=== PATIENT | male | born 1945 | race Caucasian/White ===

== ENCOUNTER 2018-05-09 18:48 | Emergency (ER) | payer OTHER, SELFPAY ==
[2018-05-09] VITALS (17 sets, daily range): BP systolic 95–145; BP diastolic 70–123; PULSE 80–165; RESP 12–22; TEMP 36.7; O2SAT 96–100; BMI 25.8
[2018-05-09] MEDS: SODIUM CHLORIDE 0.9% 1,000 ML 150 ML IV (19:00)
--- NOTE | 2018-05-09 19:41 | ED_ITS ---
HPI - Arrhythmia/Palpitations General Chief Complaint: Arrhythmia/Palpitations Stated Complaint: SHAKEY,DISORIENTED,THINKS STROKE Time Seen by Provider: 05/09/18 19:08 Source: patient and family Mode of arrival: ambulatory Limitations: no limitations History of Present Illness HPI narrative: 72-year-old male with history of hypertension and recent stroke presents with dizziness, confusion, and shakiness. He states this started at 3pm today. He denies CP but admits to SOB. He does not take anticoagulation. He is sure he wasn't having these symptoms yesterday. complaint: rapid heart beat and heart racing Onset (ago): hour(s) Time: 15:00 Duration: constant Severity: moderate Associated symptoms: shortness of breath and anxiety Treatments prior to arrival: vagal maneuvers Related Data Home Medications Medication Instructions Recorded Confirmed aspirin 325 mg PO QPM 05/09/18 05/09/18 coenzyme Q10 [CoQ-10] 100 mg PO DAILY 05/09/18 05/09/18 tacrolimus [Protopic] 1 applic TP BID 05/09/18 05/09/18 Previous Rx's Medication Instructions Recorded ibuprofen 600 mg PO Q6HP PRN #20 tab 12/03/16 fluticasone-salmeterol [Advair 2 puff INH QDAY #60 inh 09/11/17 Diskus] lisinopril 20 mg PO BID #60 tab 10/31/17 atorvastatin [Lipitor] 40 mg PO HS #30 tab 04/30/18 apixaban [Eliquis] 5 mg PO BID #60 tab 05/09/18 diltiazem HCl [Cardizem CD] 120 mg PO DAILY #30 cap 05/09/18 Allergies Allergy/AdvReac Type Severity Reaction Status Date / Time Penicillins [PENICILLINS] Allergy Severe EYE Verified 05/09/18 19:43 SWELLING/ CHILDHOOD Review of Systems Review of Systems All systems reviewed & are unremarkable except as noted in HPI and below Constitutional Denies chills, Denies fever(s), Denies lethargy and Denies weakness Eyes Denies change in vision, Denies eye discharge, Denies irritation and Denies loss of vision ENT Ears, Nose, Mouth, and Throat: Denies change in voice, Denies neck pain and Denies sore throat Cardiovascular Denies chest pain, Denies irregular heart rhythm, Reports lightheadedness, Reports palpitations, Reports dyspnea, Denies dyspnea on exertion and Denies orthopnea Respiratory Denies cough, Reports dyspnea, Denies dyspnea on exertion and Denies wheezing Gastrointestinal Gastrointestinal: Denies abdominal pain, Denies change in bowel habits, Denies diarrhea, Denies nausea and Denies vomiting Genitourinary Denies hematuria, Denies flank pain, Denies urinary incontinence and Denies urinary urgency Musculoskeletal Denies neck pain Integumentary/Breasts Denies pruritus, Denies erythema, Denies rash and Denies wounds Neurologic Reports confusion, Denies loss of vision and Denies weakness Psychiatric Denies anxiety, Reports confusion, Denies depression, Denies homicidal ideation and Denies suicidal ideation Endocrine Reports palpitations Hematologic/Lymphatic Denies easy bruising Allergic/Immunologic Denies wheezing PFSH Social History Smoking Status: Former smoker Exam Narrative Exam Narrative: Pleasant 72M in distress, a bit confused, SOB Initial Vital Signs Initial Vital Signs: Vital Signs Temperature 98.1 F 05/09/18 18:50 Pulse Rate 162 H 05/09/18 18:50 Respiratory Rate 22 05/09/18 18:50 Blood Pressure 105/80 05/09/18 18:50 Pulse Oximetry 98 05/09/18 18:50 Const General: cooperative, well developed and in distress Nutritional Appearance: well nourished Orientation: alert, awake, oriented x3 and confused [facility] Head: normocephalic and atraumatic Nose: external nose normal and No nasal discharge Face and sinus: sinuses nontender, face symmetric, no sinus tenderness and No dry mucous membranes Mouth: oral mucosae normal and moist mucous membranes Teeth and gingiva: dentition normal Throat: tonsils normal and uvula midline Eyes General: appearance normal, both eyes and all related structures Alignment and Position: alignment normal Pupils: PERRL EOM: EOM intact bilaterally Chest Chest: normal inspection of the chest Resp Effort & Inspection: normal respiratory effort, able to speak in complete sentences, no respiratory distress and no use of accessory muscles Auscultation: clear to auscultation bilaterally, no rales, no rhonchi and no wheezes Cardio Rate: tachycardic Rhythm: abnormal rhythm Heart Sounds: no click, no gallops, no murmurs and no rubs Pulses: normal peripheral pulses GI Inspection: non-distended Palpation: soft, no hepatosplenomegaly, No guarding, No pulsatile mass and No tender Auscultation: normal bowel sounds Back/Spine/Pelvis Back: No CVA tenderness Cervical Spine: cervical ROM normal and No pain with cervical ROM Thoracic/Lumbar Spine: thoracic and lumbar spine normal to inspection Skin General: no rashes or lesions noted, No jaundice and No petechiae Neuro General: alert, oriented x3, gait normal and no focal motor deficits Speech: speech normal Extrem General: full ROM, no clubbing, cyanosis or edema, no pedal edema and no calf tenderness Procedures Procedural Sedation Indication: cardioversion ASA Class: II Mallampati Airway Classification: Class II Preparation: environmental monitoring technician applied, pulse oximeter, capnometry used, supplemental O2 applied, suction/airway equipment at bedside and IV secured IV Propofol dose (mg): 40 ED Sedation Level: Moderate (Concious) Patient Tolerated Procedure: Well Complications: none Additional Comments: Electrical Cardioversion: Indication: [] A time-out was completed verifying correct patient, procedure and site. Informed consent was obtained. The patient was judged to be a satisfactory for the procedure. An intravenous access was established. Monitoring equipment was set-up. The resuscitative cart was nearby. Anesthesia: The patient was given an intravenous dose of [Propofol 40mg IVP] After satisfactory anesthesia was achieved, the procedure was performed. The paddles were placed in the standard position. Synchronized, direct current electrical cardioversion was performed with [150 joules]. The patient tolerated the procedure well. There were no complications. Post Procedure: Successful cardioversion [was achieved.] Post procedure cardiac monitoring demonstrated [NSR]. Course Orders Ordered: ED Orders 05/09/18 19:00 Complete Blood Count AUTO DIFF Stat Comprehensive Metabolic Panel Stat Magnesium Stat T4 Thyroxine Stat Thyroid Stimulating Hormone Stat Troponin with CK Cardiac Panel Stat 05/09/18 19:57 XR chest 1V Stat EKG-12 Lead Stat Diltiazem HCl 125 mg/ Dextrose 125 mls @ 5 mls/hr IV TITRATE VIJAY; Protocol Last Titration: 05/09/18 20:50 Dose: 5 mg/hr, 5 mls/hr Admin: 05/09/18 19:47 Dose: 5 mg/hr, 5 mls/hr Sodium Chloride (Normal Saline 0.9%) 1,000 mls @ 150 mls/hr IV CONT VIJAY Last Infusion: 05/09/18 20:07 Dose: 0 mls/hr Admin: 05/09/18 19:00 Dose: 150 mls/hr Discontinued Medications Diltiazem HCl (Cardizem) 10 mg IV NOW ONE Stop: 05/09/18 19:26 Last Admin: 05/09/18 19:48 Dose: 10 mg Enoxaparin Sodium (Lovenox) 40 mg SUBCUT NOW ONE Stop: 05/09/18 19:46 Last Admin: 05/09/18 19:48 Dose: 40 mg Propofol (Diprivan) 40 mg 0.5 mg/kg (40 mg) IV NOW ONE Stop: 05/09/18 19:46 Last Admin: 05/09/18 19:47 Dose: 40 mg Reevaluation(s) Reevaluation #1: After a few minutes the patient quickly converted back to a rapid AFib at which point Cardizem 10 mg IVP and a Cardizem drip was administered. After 10 min the patient converted into a normal sinus rhythm. Patient remains completely asymptomatic. All symptoms ceased with rate control Consultations Consultation #1: call to neon sign erector for PCP (Jaime) whom is happy with Eliquis and recommends Cardizem 120 for ongoing rate control Time: 22:09 Vital Signs - 8 hr 05/09/18 18:50 05/09/18 19:05 05/09/18 19:18 Temperature 98.1 F Pulse Rate 162 H 136 H 165 H Respiratory Rate 22 12 16 Blood Pressure 105/80 Blood Pressure [Left Arm] 123/76 H Pulse Oximetry 98 99 05/09/18 19:20 05/09/18 19:25 05/09/18 19:30 Temperature Pulse Rate 122 H 132 H 134 H Respiratory Rate 19 19 17 Blood Pressure Blood Pressure [Left Arm] 95/72 127/99 H 142/123 H Pulse Oximetry 96 96 98 05/09/18 19:35 05/09/18 19:40 05/09/18 19:45 Temperature Pulse Rate 136 H 138 H 141 H Respiratory Rate 20 19 18 Blood Pressure Blood Pressure [Left Arm] 122/81 H 135/99 H 120/70 Pulse Oximetry 99 99 98 05/09/18 19:47 05/09/18 20:05 05/09/18 20:30 Temperature Pulse Rate 114 H 119 H 81 Respiratory Rate 18 12 Blood Pressure 121/78 H Blood Pressure [Left Arm] 131/85 H 138/77 H Pulse Oximetry 98 99 05/09/18 21:35 Temperature Pulse Rate 97 H Respiratory Rate 14 Blood Pressure Blood Pressure [Left Arm] 143/78 H Pulse Oximetry 100 MDM - Arrhythmia/Palpitations Differential Diagnosis Differential diagnosis: Likely palpitations, anxiety, sinus tachycardia, artial fibrillation, artial flutter, ventricular premature beats and supraventricular tachycardia Medical Records Attestation: I reviewed the patient's medical records. Lab Data Attestation: I reviewed the patient's lab results. Result diagrams: 05/09/18 19:00 05/09/18 19:00 Lab Results 05/09/18 05/09/18 05/09/18 Range/Units 19:00 19:00 19:00 WBC 8.5 (4.5-11.0) X10^3/uL RBC 3.92 L (4.5-5.9) X10^6/uL Hgb 14.0 (13.5-17.5) g/dL Hct 41.2 (41-53) % MCV 105.1 H (80-100) fL MCH 35.8 H (26-34) PG MCHC 34.0 (30-36) % RDW 12.2 (11.6-14.8) % Plt Count 248 (150-400) X10^3/uL Neut % (Auto) 70.8 (50-75) % Lymph % (Auto) 17.8 L (25-40) % Karnes % (Auto) 8.3 (3-14) % Eos % (Auto) 2.4 (2-4) % Baso % (Auto) 0.7 (0-2) % Neut # (Auto) 6000 H (0129-3433) /uL Sodium 140 (137-145) mmol/L Potassium 3.9 (3.4-5.1) mmol/L Chloride 103 (98-107) mmol/L Carbon Dioxide 23 (22-32) mmol/L BUN 20 (9-20) mg/dL Creatinine 0.70 (0.66-1.25) mg/dL Estimated GFR > 60.0 (>60) mL/min BUN/Creatinine Ratio 28.6 H (6-22) Glucose 117 H (80-110) mg/dL Calcium 9.4 (8.4-10.2) mg/dL Magnesium 2.1 (1.6-2.3) mg/dL Total Bilirubin 0.8 (0.2-1.3) mg/dL AST 31 (17-59) IU/L ALT 37 (21-72) IU/L Alkaline Phosphatase 66 (38-126) U/L Total Creatine Kinase 123 (55-170) U/L CK-MB (CK-2) 1.99 (<2.37) ng/mL CK-MB (CK-2) Rel Index 1.6 (1.5-5.0) % Troponin I < 0.012 (0.01-0.034) ng/mL Total Protein 7.2 (6.3-8.2) g/dL Albumin 4.1 (3.5-5.0) g/dL Globulin 3.1 (1.7-4.1) g/dL Albumin/Globulin Ratio 1.3 (1.0-2.8) TSH (0.47-4.68) uIU/mL Thyroxine (T4) (5.5-11.0) ug/dL 05/09/18 Range/Units 19:00 WBC (4.5-11.0) X10^3/uL RBC (4.5-5.9) X10^6/uL Hgb (13.5-17.5) g/dL Hct (41-53) % MCV (80-100) fL MCH (26-34) PG MCHC (30-36) % RDW (11.6-14.8) % Plt Count (150-400) X10^3/uL Neut % (Auto) (50-75) % Lymph % (Auto) (25-40) % Karnes % (Auto) (3-14) % Eos % (Auto) (2-4) % Baso % (Auto) (0-2) % Neut # (Auto) (1020-7478) /uL Sodium (137-145) mmol/L Potassium (3.4-5.1) mmol/L Chloride (98-107) mmol/L Carbon Dioxide (22-32) mmol/L BUN (9-20) mg/dL Creatinine (0.66-1.25) mg/dL Estimated GFR (>60) mL/min BUN/Creatinine Ratio (6-22) Glucose (80-110) mg/dL Calcium (8.4-10.2) mg/dL Magnesium (1.6-2.3) mg/dL Total Bilirubin (0.2-1.3) mg/dL AST (17-59) IU/L ALT (21-72) IU/L Alkaline Phosphatase (38-126) U/L Total Creatine Kinase (55-170) U/L CK-MB (CK-2) (<2.37) ng/mL CK-MB (CK-2) Rel Index (1.5-5.0) % Troponin I (0.01-0.034) ng/mL Total Protein (6.3-8.2) g/dL Albumin (3.5-5.0) g/dL Globulin (1.7-4.1) g/dL Albumin/Globulin Ratio (1.0-2.8) TSH 1.88 (0.47-4.68) uIU/mL Thyroxine (T4) 9.76 (5.5-11.0) ug/dL Imaging Data Chest x-ray: Attestation: I personally reviewed and interpreted this imaging study as follows: My impression: PROCEDURE: XR CHEST 1V INDICATIONS: new onset AFib TECHNIQUE: One view of the chest was acquired. COMPARISON: [facility], , CHEST 1 VIEW, 05/18/2017, 20:36. FINDINGS: Surgical changes and devices: None. Lungs and pleura: No pleural effusions or pneumothorax. Lungs are clear. Scattered interstitial opacities/scarring. Mediastinum: Mediastinal contours appear normal. Heart size is normal. Bones and chest wall: No suspicious bony lesions. Overlying soft tissues appear unremarkable. IMPRESSION: No acute disease. Scattered scarring/atelectasis. Dictated by: Mahin Le M.D. on 05/09/2018 at 20:15 Approved by: Mahin Le M.D. on 05/09/2018 at 20:16 ECG Data Attestation: I personally reviewed and interpreted this ECG as follows: Interpretation: AFib in 160s, RVR. No ST depression/elevation MDM Narrative Medical decision making narrative: Patient has newly discovered atrial fibrillation, after 2 attempts electrocardioversion patient had been placed on a drip but has remained in a normal sinus rhythm for over 1 hr, after stopping the drip. He is completely asymptomatic. Chads Vasc score is 4 and patient will need ongoing anticoagulation. Patient responded well to Cardizem through the IV hence prescription for oral Discharge Plan Departure Patient Disposition: Home, Self-Care Clinical Impression: Atrial fibrillation with rapid ventricular response Instructions: DI for Atrial Fibrillation Activity Restrictions/Additional Instructions: *You have been diagnosed with [ rapid atrial fibrillation ] *What to do: *Take medications as directed *Follow up with your primary care provider in 2-3 days *Return to ER if you should have [such as] [or] any new, worsening or concerning symptoms Prescriptions: New diltiazem HCl [Cardizem CD] 120 mg capsule,extended release 24hr 120 mg PO DAILY Qty: 30 RF: 0 apixaban [Eliquis] 5 mg tablet 5 mg PO BID Qty: 60 RF: 0 No Action ibuprofen 600 MG tablet 600 mg PO Q6HP PRNQty: 20 RF: 0 fluticasone-salmeterol [Advair Diskus] 250 MCG/50 MCG blister with device 2 puff INH QDAY Qty: 60 RF: 12 lisinopril 20 MG tablet 20 mg PO BID Qty: 60 RF: 12 atorvastatin [Lipitor] 40 mg tablet 40 mg PO HS Qty: 30 RF: 0 coenzyme Q10 [CoQ-10] 100 mg Capsule 100 mg PO DAILY RF: 0 aspirin 325 MG tablet,delayed release (DR/EC) 325 mg PO QPM RF: 0 tacrolimus [Protopic] 0.1 % ointment 1 applic TP BID RF: 0 Referrals: Garry Claros MD [Primary Care Provider] -
[2018-05-09] MEDS: dilTIAZem 125 MG in DEXTROSE 5 % IN WATER 100 ML IV (19:47)
[2018-05-09] MEDS: PROPOFOL 200 MG/20 ML VIAL 40 MG IV (19:47)
[2018-05-09] MEDS: ENOXAPARIN 40 MG/0.4 ML SYRINGE SUBCUT (19:48)
[2018-05-09] MEDS: dilTIAZem 25 MG/5 ML SDV 10 MG IV (19:48)
--- NOTE | 2018-05-09 19:57 | DI.RAD.S_ITS ---
PROCEDURE: XR CHEST 1V INDICATIONS: new onset AFib TECHNIQUE: One view of the chest was acquired. COMPARISON: [facility], , CHEST 1 VIEW, 05/18/2017, 20:36. FINDINGS: Surgical changes and devices: None. Lungs and pleura: No pleural effusions or pneumothorax. Lungs are clear. Scattered interstitial opacities/scarring. Mediastinum: Mediastinal contours appear normal. Heart size is normal. Bones and chest wall: No suspicious bony lesions. Overlying soft tissues appear unremarkable. IMPRESSION: No acute disease. Scattered scarring/atelectasis. Dictated by: Mahin Le M.D. on 05/09/2018 at 20:15 Approved by: Mahin Le M.D. on 05/09/2018 at 20:16
[2018-05-09 20:20] LABS: Add Manual Diff / Slide Review NO; Basophils Percent Auto 0.7 % (0-2); Eosinophils Percent Auto 2.4 % (2-4); Hematocrit 41.2 % (41-53); Lymphocytes Percent Auto 17.8 % (25-40); Mean Corpuscular Hemoglobin 35.8 PG (26-34); Mean Corpuscular Volume 105.1 fL (80-100); Monocytes Percent Auto 8.3 % (3-14); Neutrophils Absolute Auto 6000 /uL (3000-5900); Neutrophils Percent Auto 70.8 % (50-75); Platelet Count 248 X10^3/uL (150-400); Red Blood Cell Count 3.92 X10^6/uL (4.5-5.9); Red Cell Distribution Width 12.2 % (11.6-14.8); White Blood Cell Count 8.5 X10^3/uL (4.5-11.0)
[2018-05-09 20:21] LABS: Alanine Aminotransferase 37 IU/L (21-72); Albumin 4.1 g/dL (3.5-5.0); Albumin Globulin Ratio 1.3 (1.0-2.8); Alkaline Phosphatase 66 U/L (38-126); Aspartate Aminotransferase 31 IU/L (17-59); BUN Creatinine Ratio 28.6 (6-22); Bilirubin Total 0.8 mg/dL (0.2-1.3); Blood Urea Nitrogen 20 mg/dL (9-20); Calcium 9.4 mg/dL (8.4-10.2); Carbon Dioxide 23 mmol/L (22-32); Chloride 103 mmol/L (98-107); Creatine Kinase 123 U/L (55-170); Estimated Glomerular Filt Rate > 60.0 mL/min (>60); Globulin 3.1 g/dL (1.7-4.1); Glucose 117 mg/dL (80-110); HEMOLYSIS < 15 (0-50); Magnesium 2.1 mg/dL (1.6-2.3); Potassium 3.9 mmol/L (3.4-5.1); Sodium 140 mmol/L (137-145); Total Protein 7.2 g/dL (6.3-8.2)
[2018-05-09 20:35] LABS: Troponin I < 0.012 ng/mL (0.01-0.034)
[2018-05-09 20:36] LABS: CKMB % Relative Index 1.6 % (1.5-5.0); Creatine Kinase MB 1.99 ng/mL (<2.37)
[2018-05-09 20:44] LABS: T4 Total Thyroxine 9.76 ug/dL (5.5-11.0)
[2018-05-09 20:58] LABS: Thyroid Stimulating Hormone 1.88 uIU/mL (0.47-4.68)
== END 2018-05-09 22:35 | disposition home or self-care (01) ==
PROVIDERS: Emergency Provider Emergency Medicine; PCP Family Medicine
DX: I48.91 Unspecified atrial fibrillation (principal)
CPT/HCPCS: 36591; 71045; 80053; 82550; 82553; 82962; 83735; 84436; 84443; 84484; 85025; 92960; 93005; 94770; 96372; 96374; 96375; 99152; 99285; 99291; J1650; J2704

== ENCOUNTER → 2018-05-17 12:45 | Outpatient (CLI) | payer OTHER, SELFPAY ==
--- NOTE | 2018-05-17 12:46 | DI.ECHO.S_ITS ---
[facility]---------+ [facility] +---------+ : : [address] : : : : [id number] : : : : Phone: [phone] Echocardiogram Report + + :Name: VILMA NAVA Study Date: 05/17/2018 Height: 70 in : :[facility] Weight: 180 lb : : Gender: Male BSA: 2.0 m2 : :: 1945 Age: 72 yrs BP: 146/60 mmHg: :Reason For Study: Atrial fibrillation : : Performed By: Zena Casey : :Referring: TATIANA ALVARADO : + + Interpretation Summary Normal sinus rhythm.. Heart rate is 75-80 bpm. Normal LV size, wall thickness, wall motion and left ventricular systolic function. Ejection fraction is 60??65 percent. Stage I diastolic dysfunction with E/A reversal. Mild left atrial enlargement. Otherwise normal chamber sizes. No significant valvular abnormalities. Incidentally noted 5 cm hepatic cyst. Compared to prior study May 19, 2017, hepatic cyst is newly described. Otherwise no significant changes have occurred. Procedure: A two-dimensional transthoracic echocardiogram with color flow and Doppler was performed. The study quality was technically adequate. Comparison is made with the echocardiogram of 05-19-17. The patient was in normal sinus rhythm during the exam. Left Ventricle: The left ventricle is normal in size, wall thickness, and systolic function without any focal wall motion abnormalities. The ejection fraction is estimated to be 60-65%. Assessment of diastolic parameters indicates normal left ventricular diastolic function and normal filling pressures. Right Ventricle: Borderline right ventricular enlargement. The right ventricular systolic function is normal. Atria: Borderline left atrial enlargement. Right atrial size is normal. The interatrial septum is intact with no evidence for an atrial septal defect. Mitral Valve: The mitral valve is normal in structure and function. Aortic Valve: The aortic valve is trileaflet. The aortic valve opens well. No aortic regurgitation is present. Tricuspid Valve: The tricuspid valve is normal in structure and function. There is a trace or physiologic amount of tricuspid regurgitation. The right ventricular systolic pressure is estimated at 27 mmHg assuming a right atrial pressure of 3 mm Hg. Pulmonic Valve: The pulmonic valve is not well seen, but is grossly normal. There is no pulmonic valvular regurgitation. Great Vessels: The aortic root is normal size. The dimensions of the ascending aorta are normal. The IVC is of normal diameter and collapses greater than 50% with a sniff. This suggests a low right atrial pressure of 3 mm Hg. Pericardium/ Pleura There is no pericardial effusion. There is no pleural effusion. MMode/2D Measurements & Calculations LVIDd: 4.5 cm Ao root diam: 3.4 cm LVIDs: 3.1 cm Aortic Jxn: 2.6 cm FS: 30.7 % asc Aorta Diam: 3.0 cm EPSS: 0.67 cm Ao Arch Diam (Prox Trans): 3.1 cm IVSd: 0.98 cm LVPWd: 0.78 cm LV interiano. diameter/BSA (cm/m^2): 2.2 LV sys. diameter/BSA (cm/m^2): 1.6 LA dimension: 3.5 cm RA long axis: 5.0 cm LA A2 area: 23.8 cm2 RA area: 18.1 cm2 LA A4 area: 22.8 cm2 RA vol: 55.8 ml LA length (vol): 6.0 cm RA : 28.0 ml/m2 LA vol: 77.1 ml IVC diam: 2.1 cm LA vol index: 38.6 ml/m2 RVDd major: 5.9 cm RVD1 (basal): 4.7 cm RVD2 (mid): 3.6 cm Doppler Measurements & Calculations Ao V2 max: 163.3 cm/sec MV E max gaudencio: 82.1 cm/sec Ao V2 mean: 98.3 cm/sec MV A max gaudencio: 84.7 cm/sec Ao max P.7 mmHg MV E/A: 0.97 Ao mean P.6 mmHg Med Peak E' Gaudencio: 9.5 cm/sec Ao V2 VTI: 33.3 cm E/E' med: 8.7 Lat Peak E' Gaudencio: 11.9 cm/sec E/E' lat: 6.9 E/e' average: 7.8 MV dec time: 0.26 sec MV P1/2t: 77.4 msec TR max gaudencio: 245.2 cm/sec MV P1/2t max gaudencio: 82.4 cm/sec TR max P.1 mmHg MVA(P1/2t): 2.8 cm2 PA V2 max: 89.1 cm/sec PA V2 mean: 57.7 cm/sec PA mean P.6 mmHg PA Accel Time: 0.18 sec Reading Physician:07:56 AM
== END ==
PROVIDERS: PCP Family Medicine; Visit Provider Family Medicine
DX: I48.91 Unspecified atrial fibrillation (principal)
CPT/HCPCS: 93306

== ENCOUNTER → 2018-05-17 13:46 | Outpatient (CLI) | payer OTHER, SELFPAY | PROVIDERS: PCP Family Medicine; Visit Provider Family Medicine | DX: I48.91 Unspecified atrial fibrillation (principal) | CPT/HCPCS: 0296T; 0298T ==

== ENCOUNTER → 2018-06-27 08:44 | Outpatient (CLI) | payer OTHER, SELFPAY ==
[2018-06-27 09:42] LABS: Add Manual Diff / Slide Review NO; Basophils Percent Auto 0.6 % (0-2); Eosinophils Percent Auto 3.7 % (2-4); Hematocrit 40.4 % (41-53); Hemoglobin 13.7 g/dL (13.5-17.5); Lymphocytes Percent Auto 26.8 % (25-40); Mean Corpuscular Hemoglobin 36.1 PG (26-34); Mean Corpuscular Volume 106.3 fL (80-100); Monocytes Percent Auto 9.1 % (3-14); Neutrophils Absolute Auto 3200 /uL (3000-5900); Neutrophils Percent Auto 59.8 % (50-75); Platelet Count 228 X10^3/uL (150-400); Red Cell Distribution Width 12.1 % (11.6-14.8); White Blood Cell Count 5.3 X10^3/uL (4.5-11.0)
[2018-06-27 10:03] LABS: Alanine Aminotransferase 28 IU/L (21-72); Albumin 3.9 g/dL (3.5-5.0); Albumin Globulin Ratio 1.5 (1.0-2.8); Alkaline Phosphatase 55 U/L (38-126); Aspartate Aminotransferase 23 IU/L (17-59); BUN Creatinine Ratio 24.3 (6-22); Bilirubin Total 0.8 mg/dL (0.2-1.3); Blood Urea Nitrogen 17 mg/dL (9-20); Calcium 9.4 mg/dL (8.4-10.2); Carbon Dioxide 34 mmol/L (22-32); Chloride 100 mmol/L (98-107); Estimated Glomerular Filt Rate > 60.0 mL/min (>60); Globulin 2.6 g/dL (1.7-4.1); Glucose 108 mg/dL (80-110); HEMOLYSIS < 15 (0-50); Potassium 4.7 mmol/L (3.4-5.1); Sodium 140 mmol/L (137-145); Total Protein 6.5 g/dL (6.3-8.2)
--- NOTE | 2018-06-27 10:27 | P.PCN_ITS ---
Cardiac Stress Test Report Referral & Results Date Patient Seen: 06/27/18 Time Patient Seen: 10:25 Requesting provider: Garry Claros Indication: Preop carotid surgery Rest ECG: Unremarkable, sinus rhythm Procedure Note: Today following both written and verbal informed consent the patient was exercised according to a standard Forrest protocol patient went for a total of 4 min 5 sec achieving a maximum heart rate of 188 maximum systolic blood pressure of 180. This is approximately 7.0 METS. Exercise was terminated at this point because of inability the patient to go any further. Patient was also given Cardiolite through a previously started Hep-Lock IV by the nuclear plant instrument technician approximately 1 minute prior to the cessation of exercise. Lots of motion artifact made monitoring of the ST segments difficult. No obvious ST segment changes were noted. Patient's him to have a normal heart rate and blood pressure response to exercise Functional aerobic impairment rated 35% on the sedentary scale In recovery patient had either runs of SVT there 8-15 beats long or perhaps went into atrial fibrillation with rapid ventricular response. Looked more like SVT. Again motion artifact/technical artifact because of lead placement made it difficult to ascertain to origin of this dysrhythmia. This was done but the patient off his metoprolol as well Impression: No clear evidence of ischemia. Dysrhythmias above from a supraventricular origin, limited exercise capacity as above Perfusion imaging will be reported separately Please note: Actual ECG tracings can be found in the PACS system.
--- NOTE | 2018-06-30 07:05 | DI.NM.S_ITS ---
DATE OF SERVICE: 06/27/2018 REFERRING PHYSICIAN: Garrett Munoz MD PROCEDURE: Nuclear cardiac stress study. INDICATIONS: Pre-surgical evaluation to exclude significant ischemic heart disease. STRESS TEST: This gentleman was exercised on a regular Forrest protocol for a total time of 4 minutes and 5 seconds, stopping due to fatigue, with runs of rapid SVT in the last several minutes of exercise periodically. SVT showed fairly significant ST segment depression in a nonspecific manner. Blood pressure response to exercise was normal. Peak heart rate achieved was 160 beats per minute, and the patient had no symptoms of anginal-like chest discomfort. PROCEDURE: This patient received 24.8 mCi of technetium 99 Myoview for the stress portion of the examination. He returned 1 day later for the resting portion of the examination, receiving an additional 26.5 mCi. FINDINGS: RAW DATA: Raw data images show overall good image quality. No significant source of artifact or interference noted. QUANTITATIVE GATED SPECT IMAGING: Gated images show a normal-sized ventricle with an end-diastolic volume of around 114 cc. Estimated ejection fraction in the range of 70% with no regional wall motion abnormalities seen. QUANTITATIVE PERFUSION SPECT IMAGING: Myocardial perfusion imaging shows a normal distribution of radioisotopes throughout the myocardium with the exception of a small focal apical defect which is consistent with normal apical thinning. No reversable myocardial perfusion abnormalities identified that would suggest ischemia. Both stress and rest prefusion images show a moderate amount of diaphragmatic attenuation artifact, which is eliminated with prone imaging. IMPRESSION: Nuclear cardiac stress study suggests a low likelihood for the presence of significant underlying obstructive coronary artery disease. Frequent rapid SVT noted with exercise. Castro Bee - DL/fn/ts doc#: [id number]/job#: [id number] dd: 06/29/2018 15:52:00 dt: 06/30/2018 06:51:00 DICTATING MD/COPIES TO: Tyree Guo MD COPIES MNE: MARCELLO
== END ==
PROVIDERS: PCP Family Medicine; Visit Provider Surgery Vascular Surgery
DX: I48.91 Unspecified atrial fibrillation (principal); Z01.818 Encounter for other preprocedural examination
CPT/HCPCS: 36415; 78452; 80053; 85025; 93016; 93017; 93018; A9502

== ENCOUNTER → 2019-09-25 08:12 | Outpatient (CLI) | payer OTHER, SELFPAY ==
[2019-09-25 09:22] LABS: Add Manual Diff / Slide Review NO; Basophils Absolute Auto 0 /uL (0-100); Basophils Percent Auto 0.7 % (0-2); Eosinophils Absolute Auto 200 /uL (0-450); Eosinophils Percent Auto 3.3 % (2-4); Hematocrit 40.6 % (41-53); Hemoglobin 13.8 g/dL (13.5-17.5); Lymphocytes Absolute Auto 1000 /uL (1100-4500); Lymphocytes Percent Auto 21.6 % (25-40); Mean Corpuscular Hemoglobin 35.8 PG (26-34); Mean Corpuscular Volume 105.3 fL (80-100); Monocytes Absolute Auto 500 /uL (0-900); Monocytes Percent Auto 10.2 % (3-14); Neutrophils Absolute Auto 3100 /uL (1500-7000); Neutrophils Percent Auto 64.2 % (50-75); Platelet Count 223 X10^3/uL (150-400); Red Blood Cell Count 3.86 X10^6/uL (4.5-5.9); Red Cell Distribution Width 12.1 % (11.6-14.8); White Blood Cell Count 4.8 X10^3/uL (4.5-11.0)
[2019-09-25 09:50] LABS: Alanine Aminotransferase 25 IU/L (<50); Albumin Globulin Ratio 1.6 (1.0-2.8); Alkaline Phosphatase 61 U/L (38-126); Aspartate Aminotransferase 29 IU/L (17-59); BUN Creatinine Ratio 24.3 (6-22); Bilirubin Total 1.1 mg/dL (0.2-1.3); Blood Urea Nitrogen 17 mg/dL (9-20); Calcium 9.2 mg/dL (8.4-10.2); Carbon Dioxide 30 mmol/L (22-32); Chloride 101 mmol/L (98-107); Cholesterol 114 mg/dL (140-199); Estimated Glomerular Filt Rate > 60.0 mL/min (>60); Globulin 2.5 g/dL (1.7-4.1); Glucose 101 mg/dL (80-110); HDL Cholesterol 65 mg/dL (40-60); HEMOLYSIS < 15 (0-50); LDL Cholesterol Calculated 38 mg/dL (<100); Potassium 4.1 mmol/L (3.4-5.1); Sodium 139 mmol/L (137-145); Total Protein 6.5 g/dL (6.3-8.2); Triglycerides 56 mg/dL (35-150)
[2019-09-25 10:19] LABS: TSH w/ Reflex to FT4 1.77 uIU/mL (0.47-4.68)
[2019-09-25 10:20] LABS: Prostate Specific Antigen Scrn 0.239 ng/mL (0.1-4.0)
== END ==
PROVIDERS: PCP Family Medicine; Visit Provider Family Medicine
DX: I10 Essential (primary) hypertension (principal); I48.0 Paroxysmal atrial fibrillation; R35.1 Nocturia; Z12.5 Encounter for screening for malignant neoplasm of prostate
CPT/HCPCS: 36415; 80053; 80061; 84443; 85025; G0103

== ENCOUNTER → 2022-02-25 15:53 | Outpatient (CLI) | payer MEDICARE, SELFPAY ==
--- NOTE | 2022-02-25 15:54 | DI.RAD.S_ITS ---
PROCEDURE: XR KNEE RT 3V INDICATIONS: rt knee pain TECHNIQUE: 3 views of the knee were acquired. COMPARISON: None. FINDINGS: Bones: No fractures or dislocations. No suspicious bony lesions. Severe narrowing of the medial femorotibial joint and tricompartmental periarticular osteophyte formation. Mild narrowing of the lateral patellofemoral knee joint. Mild lateral patellar tilt and migration. Soft tissues: Small joint effusion. No suspicious soft tissue calcifications. IMPRESSION: Tricompartmental knee joint degeneration, severe involving the medial femorotibial joint. Dictated by: Seth Vang [facility] Interpreted: Bobby Whatley MD on 02/25/2022 at 16:29 Transcribed by: DEIRDRE on 02/25/2022 at 16:30 Approved by: Bobby Whatley M.D. on 02/25/2022 at 17:25
== END ==
PROVIDERS: PCP Family Medicine; Referring Provider Family Medicine; Visit Provider Family Medicine
DX: M25.561 Pain in right knee (principal); M17.11 Unilateral primary osteoarthritis, right knee
CPT/HCPCS: 73562